=== PATIENT | female | born 1965 | race Caucasian/White ===

== ENCOUNTER 2016-05-06 19:40 | Emergency (ER) | payer MEDICAID ==
--- NOTE | ~2016-05-06 | ER ---
PATIENT'S NAME: TRENT CARRANZA [facility] AGE: 51 Y [address] ROOM: [place] [id number] LOCATION: [facility] ADMIT DATE: 05/06/2016 ER/Outpatient Report DISCHARGE DATE: 05/06/2016 FAMILY PHYSICIAN: PHYSICIAN, NO ATTENDING PHYSICIAN: Brad Villaseñor Time of Arrival: 1946 hours. Time of Exam: 2005 hours. CHIEF COMPLAINT: Vaginal bleeding. HISTORY OF PRESENT ILLNESS: The patient states that she has been having a continuous period since April 02 or . She states it started out as a normal period, had just a small amount of bleeding, then became regular bleeding, but it has gotten worse over a period of time. She states she has always had clots with her periods for the past 15 years. However, the clots now seemed to be bigger and thicker. She said she did go to an Urgent [facility] last week in [place]. She said they only poked a finger and then sent her home with a prescription for iron and progesterone, which she states she has been taking. She states she only has about two or three days left of the progesterone left. She states with the progesterone, her symptoms have gotten worse. She has had more clots and the clots have gotten thicker with the start of the progesterone. She states she has just generalized lower abdominal pain. Has not been nauseated. Has not had any vomiting. She did have a normal bowel movement this morning. States she does get a little short of breath with activity. She reports she is a 4, para 3, AB 1. With her pregnancies, two of them went to vaginal deliveries and one was a . She states she does not have a primary doctor and has not been seen by one for quite some time. She does see [facility] for her lupus. ALLERGIES: PENICILLIN. CURRENT MEDICATIONS: Iron and progesterone that were started last week and she does take a multivitamin [id number]. PAST MEDICAL HISTORY: Osteoarthritis, lupus, anemia. 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 PATIENT'S NAME: TRENT CARRANZA [facility] AGE: 51 Y [address] ROOM: [place] [id number] LOCATION: [facility] ADMIT DATE: 05/06/2016 ER/Outpatient Report DISCHARGE DATE: 05/06/2016 FAMILY PHYSICIAN: PHYSICIAN, NO ATTENDING PHYSICIAN: Brad Villaseñor SOCIAL HISTORY: She does smoke half pack per day and has for the last 30 years. Denies use of drugs or alcohol. REVIEW OF SYSTEMS: All negative other than those mentioned in the HPI. PHYSICAL EXAMINATION: VITAL SIGNS: She weighed 63.3 kg. Blood pressure is 121/79, pulse of 95, respirations 16, temperature of 98.9 tympanic, and O2 saturations 100% on room air. GENERAL: She is awake, alert, and oriented x4. SKIN: [place], warm, and dry. RESPIRATIONS: Even and nonlabored. Lung sounds were clear throughout. HEART: Regular rate and rhythm. ABDOMEN: Soft and nondistended. Bowel sounds are present. She is tender to palpate in the lower abdominal area, left greater than right. : Pelvic exam was completed. She did have a couple of small clots of the vaginal vault. There was a clot on the opening of the cervix that was removed and no increased bleeding was noted after that. Bimanual exam did not cause tenderness with movement of the cervix. Able to feel the ovaries with no increased tenderness or abnormal findings. EMERGENCY ROOM COURSE: Saline lock was initiated. Fluids of normal saline were started. Lab work was drawn. CBC shows a white count of 4.1, hemoglobin is 9.5, and hematocrit 29.6. Chem panel; sodium is 138, potassium is 3.5, and chloride 104. Her free T4 is 0.7. TSH is 30.2. Serum HCG is less than 1. I did do cath UA, it is negative. CT scan was completed. Radiology impression states prominent and indistinct cervix. Moderate amount of stool. Refluxing dilated left ovarian vein. The patient's results and exam were reviewed with Dr. Villaseñor. We also gave her Toradol 30 mg IV push. IMPRESSION: 1. Dysfunctional uterine bleeding. 2. Elevated thyroid TSH. 3. Generalized lower abdominal pain. PLAN: Discussed results with the patient. Going to allow her to go home, rest. Continue fluids. A prescription was written for Naprosyn to take as needed for discomfort. She states she had made an appointment with [facility] and is scheduled to see them on Wednesday. I encouraged her to keep that appointment. I did talk to her about the need to follow up with the primary provider in order to have further studies of the thyroid done. She was given PATIENT'S NAME: TRENT CARRANZA [facility] AGE: 51 Y [address] ROOM: [place], [place] [address] LOCATION: [facility] ADMIT DATE: 05/06/2016 ER/Outpatient Report DISCHARGE DATE: 05/06/2016 FAMILY PHYSICIAN: PHYSICIAN, NO ATTENDING PHYSICIAN: Brad Villaseñor cards to the different clinics here in town and encouraged to call and make an appointment within the next 1-2 days. She verbalized understanding to the plan of care. LOUANN MCCRARY APRN FOR DO NATHALIA SERRATO/rafaell /[id number] d: 05/07/16 0555 t: 05/11/16 1504, OUTPATIENT REPORT
[2016-05-06 20:29] LABS: EOSINOPHIL # 0.2 K/uL (0.0-0.5); EOSINOPHIL % 4.8 %; HEMATOCRIT 29.6 % (33.0-46.0); HEMOGLOBIN 9.5 g/dL (10.0-15.0); IMMATURE GRANULOCYTE % 0.5 %; LYMPHOCYTE # 1.5 K/uL (0.8-4.0); LYMPHOCYTE % 35.7 %; MCH 30.9 pg (27.0-34.0); MCHC 32.1 gm/dL (32.0-36.5); MCV 96.4 fl (83.0-98.0); MONOCYTE # 0.4 K/uL (0.0-1.0); MONOCYTE % 8.7 %; NEUTROPHIL % 49.3 %; NRBC % 0 /100WBC (0-0.00); PLATELET COUNT 290 K/uL (150-450); RBC 3.07 M/uL (3.50-5.50); WBC 4.1 K/uL (4.0-11.0)
[2016-05-06 20:46] LABS: BILIRUBIN URINE NEGATIVE (NEGATIVE); BLOOD URINE NEGATIVE /UL (NEGATIVE); GLUCOSE URINE NEGATIVE (NEGATIVE); KETONE URINE NEGATIVE (NEGATIVE); LEUKOCYTES URINE NEGATIVE /UL (NEGATIVE); NITRITE URINE NEGATIVE (NEGATIVE); PROTEIN URINE NEGATIVE (NEGATIVE); UROBILINOGEN URINE NORMAL (NORMAL)
[2016-05-06 20:48] LABS: COLOR URINE YELLOW (YELLOW); TURBIDITY URINE CLEAR (CLEAR)
[2016-05-06 20:48] LABS: ALBUMIN 3.7 gm/dL (3.5-5.0); ALK PHOS 65 IU/L (33-138); ALT 15 IU/L (12-78); ANION GAP 8.5 (10.0-19.0); AST 12 IU/L (10-40); BLOOD UREA NITROGEN 10 mg/dL (6-24); CALCIUM 8.3 mg/dL (8.5-10.5); CHLORIDE 104 mMol/L (96-110); CO2 29 mMol/L (22-32); CREATININE 0.8 mg/dL (0.5-1.1); ESTIMATED GFR (MDRD EQUATION) > 60; POTASSIUM 3.5 mMol/L (3.7-5.1); SODIUM 138 mMol/L (135-145); TOTAL BILIRUBIN 0.2 mg/dL (0.0-1.5); TOTAL PROTEIN 7.9 g/dL (6.0-8.4)
== END 2016-05-06 22:14 | disposition disaster alternative care site (69) ==
LOC: GMED 19:40
PROVIDERS: Nurse Practitioner Family
PROC: 0T9B70Z Drainage of Bladder with Drainage Device, Via Natural or Artificial Opening (ICD-10-PCS; principal; 2016-05-06)
DX: N93.8 Other specified abnormal uterine and vaginal bleeding (principal); R94.6 Abnormal results of thyroid function studies; M19.90 Unspecified osteoarthritis, unspecified site; D64.9 Anemia, unspecified; Z88.0 Allergy status to penicillin; Z90.49 Acquired absence of other specified parts of digestive tract
CPT/HCPCS: J1885; Q9967